=== PATIENT | male | born 1980 | race Caucasian/White ===

== ENCOUNTER → 2019-01-05 | Outpatient (CLI) | payer SELFPAY ==
--- NOTE | 2019-01-05 14:22 | RADIOLOGY IMAGING REPORT ---
FACILITY: [facility] PATIENT NAME: Refugio Mccann : 1980 MR: [id number] V: [id number] EXAM DATE: ORDERING PHYSICIAN: VANDANA YEAGER TECHNOLOGIST: Location: [facility] Patient: Refugio Mccann : 1980 Visit/Account:[id number] Date of Sevice: 01/05/2019 ABD SINGLE ORGAN/QUAD/FOLLOWUP HISTORY: Groin pain, possible hernia COMPARISON: None. FINDINGS: Numerous sonographic images were obtained of both groins both with and without a Valsalva maneuver de monstrating no evidence of an inguinal hernia. No demonstration of an inguinal mass. IMPRESSION: No sonographic abnormality of the inguinal regions Report Dictated By: Kristine Mitchell MD at 01/05/2019 2:13 PM Report E-Signed By: Kristine Mitchell MD at 01/05/2019 2:15 PM WSN:[id number]
== END ==
LOC: US 01:33
PROVIDERS: ATTEND Nurse Practitioner
DX: R10.11 Right upper quadrant pain (principal); R10.31 Right lower quadrant pain
CPT/HCPCS: 76705

== ENCOUNTER → 2019-01-08 | Outpatient (CLI) | payer BC ==
--- NOTE | 2019-01-08 09:16 | RADIOLOGY IMAGING REPORT ---
[place]AC[place] [facility] [place]IENT NAME: Refugio Mccann : 1980 MR: [id number] V: [id number] EXAM DATE: ORDERING PHYSICIAN: VANDANA YEAGER TECHNOLOGIST: Location: [facility] Patient: Refugio Mccann : 1980 Visit/Account:[id number] Date of Sevice: 01/08/2019 Focused right upper quadrant ultrasound HISTORY: Intermittent right upper quadrant pain. COMPARISON: None available. Findings: Standard right upper quadrant abdominal ultrasound is performed. Pancreas: Visualized portions of the pancreas are unremarkable. Liver: Negative. Gallbladder and biliary system: Small non-shadowing echogenic foci along the camp of the gallbladder measuring less than 4 mm. No gallbladder wall thickening or pericholecystic fluid. No dilated bile d ucts. Aorta and IVC: The visualized aorta and IVC are patent. Kidneys: The right kidney measures 11.7 x 5.9 x 4.4 cm. Normal echogenicity. No hydronephrosis. Ascites: None. IMPRESSION: 1. A few small non-shadowing echogenic foci along the camp of the gallbladder measuring less than 4 mm. These may be non-shadowing stones, sludge balls, or polyps. No evidence of acute cholecystitis. 2. Otherwise unremarkable right upper quadrant ultrasound. Report Dictated By: Grady Alvarez MD at 01/08/2019 9:05 AM Report E-Signed By: Grady Alvarez MD at 01/08/2019 9:09 AM WSN:[email or web address]
== END ==
LOC: US 01:01
PROVIDERS: ATTEND Nurse Practitioner
DX: R10.11 Right upper quadrant pain (principal)
CPT/HCPCS: 76705